=== PATIENT | female | born 1990 ===

== ENCOUNTER 2017-07-31 13:14 | Emergency (ER) | payer MEDICAID ==
[2017-07-31 13:17] VITALS: BMI 34.3
[2017-07-31 14:05] VITALS: RESP 18; TEMP 98.1; O2SAT 99
--- NOTE | 2017-07-31 14:39 | ED PDOC ---
Arrival/HPI - General Chief Complaint: Abnormal Skin Integrity Time Seen by Provider: 07/31/17 14:33 Historian: Patient, Spouse - History of Present Illness Narrative History of Present Illness (Text): 07/31/17 14:33 This 26 yo female, gravid, 22 weeks, presents to this ED c/o insect bites x 2 days. Patient stated that her apartment needed to be repair. She stated she went to a local intermediate, and she stayed there for nearly 2 weeks. Patient noted insect bite on her body x 2 days ago. Patient stated she was able to catch 1 insect that looks like a "bed bug", and 2 small insects that she stated they look like "body lice". Patient noted [address] areas where insect bite took place. Denies other complains. Time/Duration: Other (see hpi) Context: Other (intermediate) Past Medical History - Provider Review Nursing Documentation Reviewed: Yes - Infectious Disease Hx of Infectious Diseases: None - Cardiac Hx Cardiac Disorders: No - Pulmonary Hx Respiratory Disorders: No - Neurological Hx Neurological Disorder: No - Hematological/Oncological Hx Cancer: No - Genitourinary/Gynecological Hx Sexually Transmitted Diseases: No - Psychiatric Hx Psychophysiologic Disorder: No Hx Substance Use: No - Anesthesia Hx Anesthesia: No Hx Anesthesia Reactions: No Hx Malignant Hyperthermia: No - Suicidal Assessment Feels Threatened In Home Enviroment: No Family/Social History - Physician Review Nursing Documentation Reviewed: Yes Family/Social History: Other (noncontributory) Smoking Status: Never Smoked Hx Alcohol Use: No Hx Substance Use: No Allergies/Home Meds Allergies/Adverse Reactions: Allergies No Known Allergies Allergy (Verified 07/31/17 14:06) Home Medications: Home Meds Medication Instructions Recorded Confirmed No Known Home Med 07/31/17 07/31/17 Review of Systems - Review of Systems Constitutional: Normal. absent: Fatigue, Weight Change, Fevers, Night Sweats Eyes: Normal ENT: Normal Respiratory: Normal Cardiovascular: Normal Gastrointestinal: Normal Genitourinary Female: Normal. absent: Dysuria, Frequency, Hematuria, Vaginal Bleeding, Vaginal Discharge Musculoskeletal: Normal Skin: Normal, Rash Neurological: Other (see hpi) Endocrine: Normal Hemo/Lymphatic: Normal Psychiatric: Normal Physical Exam Vital Signs Temp Pulse Resp BP Pulse Ox 07/31/17 14:03 98.1 F 88 18 108/67 99 Temperature: Afebrile Blood Pressure: Normal Pulse: Regular Respiratory Rate: Normal Appearance: Positive for: Well-Appearing, Non-Toxic, Comfortable Pain Distress: None Mental Status: Positive for: Alert and Oriented X 3 - Systems Exam Head: Present: Atraumatic, Normocephalic Pupils: Present: PERRL Extroacular Muscles: Present: EOMI Conjunctiva: Present: Normal Mouth: Present: Moist Mucous Membranes Neck: Present: Normal Range of Motion Respiratory/Chest: Present: Clear to Auscultation, Good Air Exchange. No: Respiratory Distress, Accessory Muscle Use, Wheezes, Retracting Cardiovascular: Present: Regular Rate and Rhythm, Normal S1, S2. No: Murmurs Abdomen: Present: Normal Bowel Sounds, Other ((+) Gravid). No: Tenderness, Distention, Peritoneal Signs, Rebound, Guarding Upper Extremity: Present: Normal Inspection, Normal ROM, NORMAL PULSES, Neurovascularly Intact, Capillary Refill < 2s Lower Extremity: Present: Normal Inspection, NORMAL PULSES, Normal ROM, Neurovascularly Intact, Capillary Refill < 2 s. No: Edema, CALF TENDERNESS Neurological: Present: GCS=15, CN II-XII Intact, Speech Normal, Motor Func Grossly Intact, Normal Sensory Function, Normal Cerebellar Funct, Gait Normal Skin: Present: Warm, Dry, Normal Color. No: Rashes Psychiatric: Present: Alert, Oriented x 3, Normal Insight, Normal Concentration Medical Decision Making ED Course and Treatment: 07/31/17 15:19 Heart Rate was 140bpm at bedside, performed by NATHANIEL Talley Re-evaluation Time: 15:53 Reassessment Condition: Re-examined, Improved - Lab Interpretations Lab Results: Lab Results 07/31/17 15:05: Urine Color Yellow, Urine Appearance Clear, Urine pH 6.0, Ur Specific [place] 1.020, Urine Protein Negative, Urine Glucose (UA) Negative, Urine Ketones Negative, Urine Blood Negative, Urine Nitrate Negative, Urine Bilirubin Negative, Urine Urobilinogen 0.2, Ur Leukocyte Esterase Negative I have reviewed the lab results: Yes Interpretation: No clinic. lab abnormalty Disposition/Present on Arrival - Present on Arrival Any Indicators Present on Arrival: No History of DVT/PE: No History of Uncontrolled Diabetes: No Urinary Catheter: No History of Decub. Ulcer: No History Surgical Site Infection Following: None - Disposition Have Diagnosis and Disposition been Completed?: Yes Diagnosis: Insect bite Disposition: HOME/ ROUTINE Disposition Time: 15:54 Patient Plan: Discharge Patient Problems: Current Active Problems Problem Status Onset Insect bite Acute Condition: GOOD Discharge Instructions (ExitCare): Bedbugs, Insect Bites and Stings (DC) Additional Instructions: Call private doctor and [facility] doctors for follow up visit in 1-2 days. Return to emergency if symptoms worsen. Referrals: Trav Lubin MD [Primary Care Provider] - Follow up with primary Forms: [employer] (Mauritanian)
[2017-07-31 15:33] LABS: URINE BILIRUBIN NEGATIVE (NEGATIVE); URINE BLOOD NEGATIVE (NEGATIVE); URINE GLUCOSE (UA) NEGATIVE (NEGATIVE); URINE PROTEIN NEGATIVE mg/dL (<30 mg/dL); URINE UROBILINOGEN 0.2 E.U./dL (<1 E.U./dL)
[2017-07-31 15:34] LABS: URINE APPEARANCE CLEAR (CLEAR); URINE COLOR YELLOW (YELLOW); URINE LEUKOCYTE ESTERASE NEGATIVE Leu/uL (NEGATIVE)
[2017-07-31 16:10] VITALS: BP 110/72; PULSE 85
== END 2017-07-31 16:09 | disposition home or self-care (01) ==
LOC: ED 13:14
DX: T14.8XXA Other injury of unspecified body region, initial encounter (principal); W57.XXXA Bitten or stung by nonvenomous insect and other nonvenomous arthropods, initial encounter; Z3A.22 22 weeks gestation of pregnancy